=== PATIENT | male | born 1980 | race African-American/Black ===

== ENCOUNTER 2017-05-21 23:10 | Emergency (ER) | payer SELFPAY ==
[~2017-05-21] VITALS: Ht 170.2 cm; Wt 70.3 kg
[2017-05-21 23:21] VITALS: BP 118/74
--- NOTE | 2017-05-21 23:21 | NUR ---
PT RETURNED TO LOBBY
--- NOTE | 2017-05-22 00:01 | NUR ---
PT REFUSED LAB TO DRAW HIS BLOOD. CHRISTINE WALTON NOTIFTED.
--- NOTE | 2017-05-22 00:14 | NUR ---
PT IS A 36 MALE BIB [facility] WHO PRESENTS TO THE ED C/O GENERALIZED WEAKNESS. PT STATES, "MY WHOLE LOWER BODY HURTS." PT REPORTS 9/10 SHARP LOWER BODY PAIN. PT DENIES CP, SOB, REPORTS NAUSEA DENIES VOMITING/DIARRHEA. PT AAOX4, RR EVEN/UNLABORED. PT REPOSITIONED FOR COMFORT, PT SITTING IN CHAIR. ER MD DR. RUTH NOTIFIED. WILL CONTINUE TO MONITOR.
--- NOTE | 2017-05-22 01:02 | NUR ---
PATIENT IS RESTING AT THIS TIME.
--- NOTE | 2017-05-22 01:57 | NUR ---
Yana farnsworth in [facility] - 05/22/17 at 0208 by [facility] AT BEDSIDE-BLOOD SENT
[2017-05-22 02:43] VITALS: BP 132/62
--- NOTE | 2017-05-22 02:43 | NUR ---
Patient discharged with v/s stable. Written and verbal after care instructions given and explained. Patient verbalized understanding. Ambulatory with steady gait. All questions addressed prior to discharge. Advised to follow up with PMD.
== END 2017-05-22 02:43 | disposition home or self-care (01) ==
LOC: MED 23:10
DX: M79.1 Myalgia (principal); D57.1 Sickle-cell disease without crisis; Z88.0 Allergy status to penicillin; Z88.8 Allergy status to other drugs, medicaments and biological substances
CPT/HCPCS: 99283